=== PATIENT | male | born 1975 ===

== ENCOUNTER 2019-05-24 15:43 | Inpatient (IN) | payer MEDICARE ==
[~2019-05-24] VITALS: Ht 170.2 cm; Wt 99.6 kg
[2019-05-24] MEDS ORDERED: LORazepam 2 MG/ML VIAL IM ONE (16:30)
[2019-05-24] MEDS ORDERED: DiphenhydrAMINE HCL 50 MG/ML VIAL IM ONE (16:30)
[2019-05-24] MEDS ORDERED: HALOPERIDOL LACTATE 5 MG/ML VIAL IM ONE (16:30)
[2019-05-24 17:34] LABS: BASOPHILS % (AUTO) 0.3 % (0.0-2.0); EOSINOPHILS % (AUTO) 0 % (1.0-6.0); HEMATOCRIT 40.9 % (41-53); HEMOGLOBIN 13.8 g/dL (13.5-17.5); LYMPHOCYTES # (AUTO) 0.6 K/uL (1.0-4.8); LYMPHOCYTES % (AUTO) 7.9 % (22.0-44.0); MEAN CORPUSCULAR HEMOGLOBIN 31.2 pg (26.0-34.0); MEAN CORPUSCULAR HGB CONC 33.7 G/dL (31.0-37.0); MEAN CORPUSCULAR VOLUME 93 fL (80-100); MONOCYTES # (AUTO) 0.4 K/uL (0.1-1.0); MONOCYTES % (AUTO) 5.7 % (2.0-9.0); NEUTROPHILS # (AUTO) 6.2 K/uL (1.8-7.7); PLATELET COUNT (AUTO) 155 K/uL (150-450); RED BLOOD CELL COUNT(AUTO) 4.42 MIL/uL (4.50-5.90); RED CELL DISTRIBUTION WIDTH 13.6 % (11.5-14.5)
[2019-05-24 17:36] LABS: NEUTROPHILS % (AUTO) 86.1 % (40.0-70.0)
[2019-05-24] MEDS ORDERED: MAGNESIUM HYDROXIDE SUSPENSION 30 ML UDCUP PO PRN (17:45)
[2019-05-24] MEDS ORDERED: GuaiFENesin/D-METHORPHAN [SUGAR-FREE] 200-20MG/10 ML SYRUP UDCUP PO PRN (17:45)
[2019-05-24] MEDS ORDERED: ACETAMINOPHEN 325 MG TABLET PO PRN (17:45)
[2019-05-24] MEDS ORDERED: PROMETHAZINE HCL 25 MG TABLET PO PRN (17:45)
[2019-05-24] MEDS ORDERED: HydrOXYzine PAMOATE 50 MG CAPSULE PO PRN (17:45)
[2019-05-24] MEDS ORDERED: LOPERAMIDE HCL 2 MG CAPSULE PO PRN (17:45)
[2019-05-24] MEDS ORDERED: MAG HYDROX/AL HYDROX/SIMETH ES 30 ML SUSPENSION UDCUP PO PRN (17:45)
[2019-05-24] MEDS ORDERED: TUBERCULIN, PURIFIED PROTEIN DERIVATIVE 5 TU/0.1 ML SYRINGE ID ONE (17:45)
[2019-05-24 17:48] LABS: ANION GAP 11 mmol/L (8-16); CALCIUM, TOTAL 8.3 mg/dL (8.8-10.5); CARBON DIOXIDE 25 mmol/L (22-29); CHLORIDE 103 mmol/L (98-107); CREATININE 1.19 mg/dL (0.60-1.30); GLOMERULAR FILTR. RATE CALC > 60 mL/min (>60); GLUCOSE,RANDOM 123 mg/dL (70-110); POTASSIUM 3.4 mmol/L (3.5-5.1); SODIUM SERUM 139 mmol/L (136-145); UREA NITROGEN, BLOOD 23 mg/dL (7-18)
[2019-05-24 17:54] LABS: ALANINE AMINOTRANSFERASE 23 U/L (12-78); ALBUMIN 3.8 g/dL (3.4-5.0); ALKALINE PHOSPHATASE 88 U/L (46-116); ASPARTATE AMINOTRANSFERASE 23 U/L (15-37); BILIRUBIN,TOTAL 0.8 mg/dL (0.1-1.0); TOTAL PROTEIN, SERUM 7.1 g/dL (6.4-8.2)
[2019-05-24 18:46] LABS: HCG,QUANTITATIVE < 1 mIU/mL (0-6)
[2019-05-25] MEDS: THIAMINE HCL 100 MG TABLET PO SCH ×3 (00:16→16:03)
[2019-05-25] MEDS: OLANZapine 5 MG RAPDIS TABLET PO SCH ×2 (00:18→20:39)
[2019-05-25 00:43] LABS: APPEARANCE,URINE CLEAR (CLEAR); BILIRUBIN,URINE PRELIM. POSITIVE (NEGATIVE); GLUCOSE, URINE (UA) NEGATIVE (NEGATIVE); KETONES,URINE 15 mg/dL (NEGATIVE); LEUKOCYTE ESTERASE ,URINE NEGATIVE (NEGATIVE); NITRATE,URINE NEGATIVE (NEGATIVE); OCCULT BLOOD,URINE NEGATIVE (NEGATIVE); PROTEIN,URINE NEGATIVE (NEGATIVE)
[2019-05-25 00:46] LABS: AMPHET/METH SCREEN,URINE NEGATIVE (NEGATIVE); BARBITURATE SCREEN, URINE NEGATIVE (NEGATIVE); BENZODIAZEPINES SCREEN,URINE NEGATIVE (NEGATIVE); CANNABINOID SCREEN,URINE NEGATIVE (NEGATIVE); COCAINE SCREEN,URINE NEGATIVE (NEGATIVE); METHADONE SCREEN, URINE NEGATIVE (NEGATIVE); OPIATE SCREEN,URINE NEGATIVE (NEGATIVE)
[2019-05-25 00:48] LABS: BACTERIA,URINE None Seen /HPF (None Seen); RBC,URINE 0-2 /HPF (0-2); SQUAMOUS EPITHELIAL CELL,UR None Seen /LPF (None Seen); WBC,URINE 0-2 /HPF (0-5)
[2019-05-25 00:49] LABS: PHENCYCLIDINE SCREEN,URINE NEGATIVE (NEGATIVE)
[2019-05-25 02:07] VITALS: BP 126/80
[2019-05-25] MEDS ORDERED: INFLUENZA VIRUS VACCINE QVS 2019-20 (3YR+)/PF 60 MCG/0.5 ML SYRINGE IM ONE (02:30)
[2019-05-25 07:05] LABS: BASOPHILS % (AUTO) 0.4 % (0.0-2.0); EOSINOPHILS % (AUTO) 1.1 % (1.0-6.0); HEMATOCRIT 41.5 % (41-53); HEMOGLOBIN 13.9 g/dL (13.5-17.5); LYMPHOCYTES # (AUTO) 1.7 K/uL (1.0-4.8); LYMPHOCYTES % (AUTO) 28.7 % (22.0-44.0); MEAN CORPUSCULAR HEMOGLOBIN 31.1 pg (26.0-34.0); MEAN CORPUSCULAR HGB CONC 33.7 G/dL (31.0-37.0); MEAN CORPUSCULAR VOLUME 92 fL (80-100); MONOCYTES # (AUTO) 0.5 K/uL (0.1-1.0); MONOCYTES % (AUTO) 8.5 % (2.0-9.0); NEUTROPHILS # (AUTO) 3.7 K/uL (1.8-7.7); NEUTROPHILS % (AUTO) 61.3 % (40.0-70.0); PLATELET COUNT (AUTO) 140 K/uL (150-450); RED BLOOD CELL COUNT(AUTO) 4.49 MIL/uL (4.50-5.90); RED CELL DISTRIBUTION WIDTH 13.5 % (11.5-14.5)
[2019-05-25 07:24] LABS: HEMOGLOBIN A1C 5.2 % (4.5-6.2)
[2019-05-25 07:36] LABS: ALANINE AMINOTRANSFERASE 23 U/L (12-78); ALBUMIN 3.4 g/dL (3.4-5.0); ALKALINE PHOSPHATASE 80 U/L (46-116); ANION GAP 8 mmol/L (8-16); ASPARTATE AMINOTRANSFERASE 23 U/L (15-37); CALCIUM, TOTAL 8.2 mg/dL (8.8-10.5); CARBON DIOXIDE 28 mmol/L (22-29); CHLORIDE 105 mmol/L (98-107); CHOL/HDL RATIO 3.5 (4.2-7.3); CHOLESTEROL 141 mg/dL (131-200); CREATININE 0.97 mg/dL (0.60-1.30); GLOMERULAR FILTR. RATE CALC > 60 mL/min (>60); GLUCOSE,RANDOM 85 mg/dL (70-110); HDL CHOLESTEROL 40 mg/dL (40-60); LDL CHOL (CALC.) 93 mg/dL (0-130); POTASSIUM 3.9 mmol/L (3.5-5.1); SODIUM SERUM 141 mmol/L (136-145); THYROID STIMULATING HORMONE 1.21 uIU/mL (0.36-3.74); TOTAL PROTEIN, SERUM 6.8 g/dL (6.4-8.2); TRIGLYCERIDES 42 mg/dL (15-150); UREA NITROGEN, BLOOD 20 mg/dL (7-18)
[2019-05-25 08:05] VITALS: BP 117/69
[2019-05-25] MEDS: MULTIVITAMINS WITH MINERALS, THERAPEUTIC TABLET PO SCH (08:39)
[2019-05-25] MEDS: FOLIC ACID 1 MG TABLET PO SCH (08:39)
[2019-05-25] MEDS: LORazepam 2 MG TABLET PO PRN ×2 (10:16→16:49)
[2019-05-25 16:00] VITALS: BP 121/76
[2019-05-25] MEDS: OLANZapine 5 MG RAPDIS TABLET PO PRN (16:50)
[2019-05-26 04:18] VITALS: BP 109/87
[2019-05-26] MEDS: NALTREXONE HCL 50 MG TABLET PO SCH (07:54)
[2019-05-26] MEDS: MULTIVITAMINS WITH MINERALS, THERAPEUTIC TABLET PO SCH (07:54)
[2019-05-26] MEDS: THIAMINE HCL 100 MG TABLET PO SCH ×2 (07:54→16:29)
[2019-05-26] MEDS: FOLIC ACID 1 MG TABLET PO SCH (07:54)
[2019-05-26 08:30] VITALS: BP 118/73
[2019-05-26] MEDS: LORazepam 2 MG TABLET PO PRN ×2 (09:58→15:52)
[2019-05-26] MEDS: OLANZapine 5 MG RAPDIS TABLET PO PRN (15:51)
[2019-05-26 17:07] VITALS: BP 118/61
[2019-05-26] MEDS ORDERED: OLANZapine 10 MG RAPDIS TABLET PO SCH (21:00)
[2019-05-27 05:00] VITALS: BP 124/78
[2019-05-27] MEDS: MULTIVITAMINS WITH MINERALS, THERAPEUTIC TABLET PO SCH (08:39)
[2019-05-27] MEDS: OLANZapine 5 MG RAPDIS TABLET PO PRN (08:39)
[2019-05-27] MEDS: LORazepam 2 MG TABLET PO PRN (08:39)
[2019-05-27] MEDS: NALTREXONE HCL 50 MG TABLET PO SCH (08:40)
[2019-05-27] MEDS: THIAMINE HCL 100 MG TABLET PO SCH ×2 (08:40→16:35)
[2019-05-27] MEDS: FOLIC ACID 1 MG TABLET PO SCH (08:40)
[2019-05-27 10:06] VITALS: BP 143/77
[2019-05-27 19:04] VITALS: BP 123/80
[2019-05-27] MEDS: OLANZapine 5 MG RAPDIS TABLET PO SCH (20:13)
[2019-05-28] MEDS: FOLIC ACID 1 MG TABLET PO SCH (08:13)
[2019-05-28] MEDS: THIAMINE HCL 100 MG TABLET PO SCH ×2 (08:13→16:03)
[2019-05-28] MEDS: MULTIVITAMINS WITH MINERALS, THERAPEUTIC TABLET PO SCH (08:14)
[2019-05-28] MEDS: NALTREXONE HCL 50 MG TABLET PO SCH (08:14)
[2019-05-28 10:02] VITALS: BP 120/76
[2019-05-28 16:00] VITALS: BP 126/79
[2019-05-28] MEDS: DIVALPROEX SODIUM 500 MG ER TABLET PO SCH (20:12)
[2019-05-28] MEDS: OLANZapine 5 MG RAPDIS TABLET PO SCH (20:13)
[2019-05-29 04:38] VITALS: BP 117/75
[2019-05-29] MEDS: THIAMINE HCL 100 MG TABLET PO SCH ×2 (08:15→16:40)
[2019-05-29] MEDS: NALTREXONE HCL 50 MG TABLET PO SCH (08:15)
[2019-05-29] MEDS: FOLIC ACID 1 MG TABLET PO SCH (08:15)
[2019-05-29] MEDS: MULTIVITAMINS WITH MINERALS, THERAPEUTIC TABLET PO SCH (08:15)
[2019-05-29] MEDS: LORazepam 2 MG TABLET PO PRN (08:18)
[2019-05-29 09:33] VITALS: BP 118/69
[2019-05-29] MEDS: DIVALPROEX SODIUM 500 MG ER TABLET PO SCH (20:01)
[2019-05-29] MEDS: OLANZapine 5 MG RAPDIS TABLET PO SCH (20:01)
[2019-05-29 22:18] VITALS: BP 115/66
[2019-05-30] MEDS: NALTREXONE HCL 50 MG TABLET PO SCH (08:06)
[2019-05-30] MEDS: MULTIVITAMINS WITH MINERALS, THERAPEUTIC TABLET PO SCH (08:06)
[2019-05-30] MEDS: FOLIC ACID 1 MG TABLET PO SCH (08:06)
[2019-05-30] MEDS: LORazepam 2 MG TABLET PO PRN (08:07)
[2019-05-30] MEDS: THIAMINE HCL 100 MG TABLET PO SCH ×2 (08:07→16:09)
[2019-05-30 08:42] VITALS: BP 114/84
[2019-05-30 19:06] VITALS: BP 113/83
[2019-05-30] MEDS: DIVALPROEX SODIUM 500 MG ER TABLET PO SCH (20:45)
[2019-05-30] MEDS: OLANZapine 5 MG RAPDIS TABLET PO SCH (20:45)
[2019-05-31 01:16] VITALS: BP 125/98
[2019-05-31] MEDS: ZOLPIDEM TARTRATE 10 MG TABLET PO PRN (02:38)
[2019-05-31] MEDS: LORazepam 2 MG TABLET PO PRN ×2 (06:30→07:51)
[2019-05-31] MEDS: OLANZapine 5 MG RAPDIS TABLET PO PRN ×2 (06:30→13:47)
[2019-05-31] MEDS: MULTIVITAMINS WITH MINERALS, THERAPEUTIC TABLET PO SCH (07:50)
[2019-05-31] MEDS: FOLIC ACID 1 MG TABLET PO SCH (07:50)
[2019-05-31] MEDS: NALTREXONE HCL 50 MG TABLET PO SCH (07:50)
[2019-05-31] MEDS: THIAMINE HCL 100 MG TABLET PO SCH ×2 (07:50→16:11)
[2019-05-31 08:46] VITALS: BP 118/88
[2019-05-31 17:00] VITALS: BP 122/70
[2019-05-31] MEDS: DIVALPROEX SODIUM 500 MG ER TABLET PO SCH (20:50)
[2019-05-31] MEDS: OLANZapine 5 MG RAPDIS TABLET PO SCH (20:51)
[2019-06-01] MEDS: ZOLPIDEM TARTRATE 10 MG TABLET PO PRN (01:25)
[2019-06-01 05:54] VITALS: BP 124/78
[2019-06-01 08:00] VITALS: BP 119/78
[2019-06-01] MEDS: MULTIVITAMINS WITH MINERALS, THERAPEUTIC TABLET PO SCH (08:06)
[2019-06-01] MEDS: THIAMINE HCL 100 MG TABLET PO SCH ×2 (08:06→16:38)
[2019-06-01] MEDS: NALTREXONE HCL 50 MG TABLET PO SCH (08:06)
[2019-06-01] MEDS: FOLIC ACID 1 MG TABLET PO SCH (08:06)
[2019-06-01] MEDS: LORazepam 2 MG TABLET PO PRN (14:26)
[2019-06-01 16:00] VITALS: BP 116/76
[2019-06-01] MEDS: OLANZapine 10 MG RAPDIS TABLET PO SCH (21:07)
[2019-06-01] MEDS: DIVALPROEX SODIUM 500 MG ER TABLET PO SCH (21:08)
[2019-06-02 03:28] VITALS: BP 109/73
[2019-06-02 08:38] VITALS: BP 104/62
[2019-06-02] MEDS: FOLIC ACID 1 MG TABLET PO SCH (08:44)
[2019-06-02] MEDS: THIAMINE HCL 100 MG TABLET PO SCH ×2 (08:45→18:46)
[2019-06-02] MEDS: NALTREXONE HCL 50 MG TABLET PO SCH (08:45)
[2019-06-02] MEDS: MULTIVITAMINS WITH MINERALS, THERAPEUTIC TABLET PO SCH (08:46)
[2019-06-02] MEDS: OLANZapine 5 MG RAPDIS TABLET PO PRN (15:46)
[2019-06-02] MEDS: LORazepam 2 MG TABLET PO PRN (15:46)
[2019-06-02 16:40] VITALS: BP 102/62
[2019-06-02] MEDS: DIVALPROEX SODIUM 500 MG ER TABLET PO SCH (20:27)
[2019-06-02] MEDS: OLANZapine 10 MG RAPDIS TABLET PO SCH (20:27)
[2019-06-03 01:38] VITALS: BP 123/77
[2019-06-03] MEDS: NALTREXONE HCL 50 MG TABLET PO SCH (07:50)
[2019-06-03] MEDS: THIAMINE HCL 100 MG TABLET PO SCH (07:50)
[2019-06-03] MEDS: MULTIVITAMINS WITH MINERALS, THERAPEUTIC TABLET PO SCH (07:50)
[2019-06-03] MEDS: FOLIC ACID 1 MG TABLET PO SCH (07:50)
[2019-06-03 08:42] VITALS: BP 106/72
[2019-06-03] MEDS: LORazepam 2 MG TABLET PO PRN (14:09)
[2019-06-03 17:43] VITALS: BP 112/80
[2019-06-03] MEDS: DIVALPROEX SODIUM 500 MG ER TABLET PO SCH (20:23)
[2019-06-03] MEDS: OLANZapine 10 MG RAPDIS TABLET PO SCH (20:23)
[2019-06-04 01:53] VITALS: BP 117/90
[2019-06-04] MEDS: NALTREXONE HCL 50 MG TABLET PO SCH (08:16)
[2019-06-04] MEDS: MULTIVITAMINS WITH MINERALS, THERAPEUTIC TABLET PO SCH (08:16)
[2019-06-04] MEDS: LORazepam 2 MG TABLET PO PRN (08:23)
[2019-06-04 09:12] VITALS: BP 117/82
[2019-06-04 17:00] VITALS: BP 110/86
[2019-06-04] MEDS ORDERED: BISACODYL 5 MG EC TABLET PO PRN (19:00)
[2019-06-04] MEDS: DIVALPROEX SODIUM 500 MG ER TABLET PO SCH (20:45)
[2019-06-04] MEDS: OLANZapine 10 MG RAPDIS TABLET PO SCH (20:45)
[2019-06-05 05:38] VITALS: BP 112/78
[2019-06-05] MEDS: MULTIVITAMINS WITH MINERALS, THERAPEUTIC TABLET PO SCH (08:33)
[2019-06-05] MEDS: NALTREXONE HCL 50 MG TABLET PO SCH (08:33)
[2019-06-05 08:49] VITALS: BP 104/67
[2019-06-05] MEDS: OLANZapine 5 MG RAPDIS TABLET PO PRN (16:21)
[2019-06-05 18:35] VITALS: BP 112/97
[2019-06-05] MEDS: DIVALPROEX SODIUM 500 MG ER TABLET PO SCH (20:14)
[2019-06-05] MEDS: OLANZapine 10 MG RAPDIS TABLET PO SCH (20:14)
[2019-06-06] MEDS: MULTIVITAMINS WITH MINERALS, THERAPEUTIC TABLET PO SCH (08:50)
[2019-06-06] MEDS: NALTREXONE HCL 50 MG TABLET PO SCH (08:51)
[2019-06-06 08:55] VITALS: BP 138/84
[2019-06-06] MEDS: LORazepam 2 MG TABLET PO PRN (16:34)
[2019-06-06 18:08] VITALS: BP 146/90
[2019-06-06] MEDS: DIVALPROEX SODIUM 500 MG ER TABLET PO SCH (20:32)
[2019-06-06] MEDS: OLANZapine 10 MG RAPDIS TABLET PO SCH (20:32)
[2019-06-07 06:14] VITALS: BP 131/84
[2019-06-07 07:48] LABS: BASOPHILS % (AUTO) 0.4 % (0.0-2.0); EOSINOPHILS % (AUTO) 2.2 % (1.0-6.0); HEMATOCRIT 43.7 % (41-53); HEMOGLOBIN 15.1 g/dL (13.5-17.5); LYMPHOCYTES % (AUTO) 35.9 % (22.0-44.0); MEAN CORPUSCULAR HEMOGLOBIN 31.7 pg (26.0-34.0); MEAN CORPUSCULAR HGB CONC 34.5 G/dL (31.0-37.0); MEAN CORPUSCULAR VOLUME 92 fL (80-100); MONOCYTES # (AUTO) 0.4 K/uL (0.1-1.0); NEUTROPHILS % (AUTO) 54.5 % (40.0-70.0); PLATELET COUNT (AUTO) 126 K/uL (150-450); RED BLOOD CELL COUNT(AUTO) 4.76 MIL/uL (4.50-5.90); RED CELL DISTRIBUTION WIDTH 13.4 % (11.5-14.5)
[2019-06-07 08:24] LABS: ALANINE AMINOTRANSFERASE 34 U/L (12-78); ALBUMIN 3.4 g/dL (3.4-5.0); ALKALINE PHOSPHATASE 74 U/L (46-116); ANION GAP 5 mmol/L (8-16); ASPARTATE AMINOTRANSFERASE 32 U/L (15-37); BILIRUBIN,TOTAL 0.3 mg/dL (0.1-1.0); CALCIUM, TOTAL 8.6 mg/dL (8.8-10.5); CARBON DIOXIDE 30 mmol/L (22-29); CHLORIDE 106 mmol/L (98-107); CREATINE KINASE, TOTAL ONLY 232 U/L (39-308); CREATININE 1.03 mg/dL (0.60-1.30); GLOMERULAR FILTR. RATE CALC > 60 mL/min (>60); GLUCOSE,RANDOM 109 mg/dL (70-110); POTASSIUM 4.4 mmol/L (3.5-5.1); SODIUM SERUM 141 mmol/L (136-145); TOTAL PROTEIN, SERUM 7.2 g/dL (6.4-8.2); UREA NITROGEN, BLOOD 22 mg/dL (7-18)
[2019-06-07] MEDS: NALTREXONE HCL 50 MG TABLET PO SCH (08:34)
[2019-06-07] MEDS: MULTIVITAMINS WITH MINERALS, THERAPEUTIC TABLET PO SCH (08:34)
[2019-06-07 10:38] VITALS: BP 106/70
[2019-06-07 16:36] VITALS: BP 120/73
[2019-06-07] MEDS: DIVALPROEX SODIUM 250 MG ER TABLET PO SCH (20:54)
[2019-06-07] MEDS: OLANZapine 10 MG RAPDIS TABLET PO SCH (20:54)
[2019-06-08 07:26] LABS: BASOPHILS % (AUTO) 0.4 % (0.0-2.0); HEMATOCRIT 42.3 % (41-53); HEMOGLOBIN 14.5 g/dL (13.5-17.5); LYMPHOCYTES # (AUTO) 2.1 K/uL (1.0-4.8); LYMPHOCYTES % (AUTO) 36.1 % (22.0-44.0); MEAN CORPUSCULAR HEMOGLOBIN 31.4 pg (26.0-34.0); MEAN CORPUSCULAR HGB CONC 34.2 G/dL (31.0-37.0); MEAN CORPUSCULAR VOLUME 92 fL (80-100); MONOCYTES # (AUTO) 0.4 K/uL (0.1-1.0); MONOCYTES % (AUTO) 6.9 % (2.0-9.0); NEUTROPHILS # (AUTO) 3.2 K/uL (1.8-7.7); NEUTROPHILS % (AUTO) 54.6 % (40.0-70.0); PLATELET COUNT (AUTO) 122 K/uL (150-450); RED BLOOD CELL COUNT(AUTO) 4.61 MIL/uL (4.50-5.90); RED CELL DISTRIBUTION WIDTH 13.6 % (11.5-14.5)
[2019-06-08] MEDS: MULTIVITAMINS WITH MINERALS, THERAPEUTIC TABLET PO SCH (08:34)
[2019-06-08] MEDS: NALTREXONE HCL 50 MG TABLET PO SCH (08:34)
[2019-06-08 09:46] VITALS: BP 118/77
[2019-06-08] MEDS: DIVALPROEX SODIUM 250 MG ER TABLET PO SCH (20:19)
[2019-06-08] MEDS: OLANZapine 10 MG RAPDIS TABLET PO SCH (20:19)
[2019-06-08 21:51] VITALS: BP 114/82
[2019-06-09 07:19] LABS: BASOPHILS % (AUTO) 0.4 % (0.0-2.0); EOSINOPHILS % (AUTO) 1.8 % (1.0-6.0); HEMATOCRIT 43.4 % (41-53); HEMOGLOBIN 14.5 g/dL (13.5-17.5); LYMPHOCYTES # (AUTO) 1.8 K/uL (1.0-4.8); LYMPHOCYTES % (AUTO) 30.9 % (22.0-44.0); MEAN CORPUSCULAR HEMOGLOBIN 30.8 pg (26.0-34.0); MEAN CORPUSCULAR HGB CONC 33.4 G/dL (31.0-37.0); MEAN CORPUSCULAR VOLUME 92 fL (80-100); MONOCYTES # (AUTO) 0.4 K/uL (0.1-1.0); MONOCYTES % (AUTO) 6.9 % (2.0-9.0); NEUTROPHILS # (AUTO) 3.4 K/uL (1.8-7.7); PLATELET COUNT (AUTO) 121 K/uL (150-450); RED CELL DISTRIBUTION WIDTH 13.7 % (11.5-14.5)
[2019-06-09 07:21] LABS: ALANINE AMINOTRANSFERASE 36 U/L (12-78); ALBUMIN 3.3 g/dL (3.4-5.0); ALKALINE PHOSPHATASE 69 U/L (46-116); ANION GAP 8 mmol/L (8-16); ASPARTATE AMINOTRANSFERASE 30 U/L (15-37); BILIRUBIN,TOTAL 0.3 mg/dL (0.1-1.0); CALCIUM, TOTAL 8.3 mg/dL (8.8-10.5); CARBON DIOXIDE 27 mmol/L (22-29); CHLORIDE 105 mmol/L (98-107); CREATININE 0.98 mg/dL (0.60-1.30); GLOMERULAR FILTR. RATE CALC > 60 mL/min (>60); GLUCOSE,RANDOM 115 mg/dL (70-110); POTASSIUM 4.1 mmol/L (3.5-5.1); SODIUM SERUM 140 mmol/L (136-145); TOTAL PROTEIN, SERUM 7.1 g/dL (6.4-8.2); UREA NITROGEN, BLOOD 19 mg/dL (7-18); VALPROIC ACID 80 mcg/mL (50-100)
[2019-06-09] MEDS: OLANZapine 5 MG RAPDIS TABLET PO PRN (08:30)
[2019-06-09] MEDS: MULTIVITAMINS WITH MINERALS, THERAPEUTIC TABLET PO SCH (08:30)
[2019-06-09] MEDS: NALTREXONE HCL 50 MG TABLET PO SCH (08:30)
[2019-06-09 08:40] VITALS: BP 136/70
[2019-06-09] MEDS: OLANZapine 10 MG RAPDIS TABLET PO SCH (20:18)
[2019-06-09] MEDS: DIVALPROEX SODIUM 250 MG ER TABLET PO SCH (20:19)
[2019-06-09 21:27] VITALS: BP 125/86
[2019-06-10 03:59] VITALS: BP 116/68
[2019-06-10] MEDS: MULTIVITAMINS WITH MINERALS, THERAPEUTIC TABLET PO SCH (08:06)
[2019-06-10] MEDS: NALTREXONE HCL 50 MG TABLET PO SCH (08:06)
[2019-06-10 08:43] VITALS: BP 123/78
[2019-06-10 19:51] VITALS: BP 145/77
[2019-06-10] MEDS: OLANZapine 10 MG RAPDIS TABLET PO SCH (20:43)
[2019-06-10] MEDS: DIVALPROEX SODIUM 250 MG ER TABLET PO SCH (20:44)
[2019-06-11] MEDS: MULTIVITAMINS WITH MINERALS, THERAPEUTIC TABLET PO SCH (07:58)
[2019-06-11] MEDS: NALTREXONE HCL 50 MG TABLET PO SCH (07:58)
[2019-06-11] MEDS: OLANZapine 5 MG RAPDIS TABLET PO PRN (07:58)
[2019-06-11 11:09] VITALS: BP 141/96
[2019-06-11 20:06] VITALS: BP 119/76
[2019-06-11] MEDS: DIVALPROEX SODIUM 250 MG ER TABLET PO SCH (20:14)
[2019-06-11] MEDS: OLANZapine 10 MG RAPDIS TABLET PO SCH (20:14)
[2019-06-12 08:30] VITALS: BP 108/75
[2019-06-12] MEDS: MULTIVITAMINS WITH MINERALS, THERAPEUTIC TABLET PO SCH (08:51)
[2019-06-12] MEDS: LORazepam 2 MG TABLET PO PRN (08:51)
[2019-06-12] MEDS: NALTREXONE HCL 50 MG TABLET PO SCH (08:53)
[2019-06-12 19:12] VITALS: BP 149/76
[2019-06-12] MEDS: DIVALPROEX SODIUM 250 MG ER TABLET PO SCH (20:53)
[2019-06-12] MEDS: OLANZapine 10 MG RAPDIS TABLET PO SCH (20:54)
[2019-06-13 04:38] VITALS: BP 126/74
[2019-06-13 08:30] VITALS: BP 110/70
[2019-06-13] MEDS: MULTIVITAMINS WITH MINERALS, THERAPEUTIC TABLET PO SCH (08:54)
[2019-06-13] MEDS: NALTREXONE HCL 50 MG TABLET PO SCH (08:55)
[2019-06-13 16:00] VITALS: BP 119/79
[2019-06-13] MEDS: DIVALPROEX SODIUM 250 MG ER TABLET PO SCH (21:10)
[2019-06-13] MEDS: OLANZapine 10 MG RAPDIS TABLET PO SCH (21:10)
[2019-06-14 05:48] VITALS: BP 118/85
[2019-06-14] MEDS: NALTREXONE HCL 50 MG TABLET PO SCH (08:06)
[2019-06-14] MEDS: MULTIVITAMINS WITH MINERALS, THERAPEUTIC TABLET PO SCH (08:07)
[2019-06-14 16:00] VITALS: BP 147/87
[2019-06-14] MEDS: DIVALPROEX SODIUM 250 MG ER TABLET PO SCH (20:47)
[2019-06-14] MEDS: OLANZapine 10 MG RAPDIS TABLET PO SCH (20:47)
[2019-06-15] MEDS: MULTIVITAMINS WITH MINERALS, THERAPEUTIC TABLET PO SCH (08:15)
[2019-06-15] MEDS: NALTREXONE HCL 50 MG TABLET PO SCH (08:16)
[2019-06-15 09:00] VITALS: BP 123/74
[2019-06-15] MEDS: OLANZapine 5 MG RAPDIS TABLET PO PRN (15:48)
[2019-06-15 16:36] VITALS: BP 115/67
[2019-06-15] MEDS: OLANZapine 10 MG RAPDIS TABLET PO SCH (20:25)
[2019-06-15] MEDS: DIVALPROEX SODIUM 250 MG ER TABLET PO SCH (20:25)
[2019-06-16] MEDS: NALTREXONE HCL 50 MG TABLET PO SCH (08:48)
[2019-06-16] MEDS: MULTIVITAMINS WITH MINERALS, THERAPEUTIC TABLET PO SCH (08:48)
[2019-06-16] MEDS: OLANZapine 5 MG RAPDIS TABLET PO PRN (08:49)
[2019-06-16 10:14] VITALS: BP 112/77
[2019-06-16 18:31] VITALS: BP 115/72
[2019-06-16] MEDS: DIVALPROEX SODIUM 250 MG ER TABLET PO SCH (20:12)
[2019-06-16] MEDS: OLANZapine 10 MG RAPDIS TABLET PO SCH (20:12)
[2019-06-17 09:18] VITALS: BP 119/72
[2019-06-17] MEDS: NALTREXONE HCL 50 MG TABLET PO SCH (10:11)
[2019-06-17] MEDS: MULTIVITAMINS WITH MINERALS, THERAPEUTIC TABLET PO SCH (10:12)
[2019-06-17 19:00] VITALS: BP 122/70
[2019-06-17] MEDS: DIVALPROEX SODIUM 250 MG ER TABLET PO SCH (20:15)
[2019-06-17] MEDS: OLANZapine 10 MG RAPDIS TABLET PO SCH (20:16)
[2019-06-18 10:13] VITALS: BP 106/74
[2019-06-18] MEDS: MULTIVITAMINS WITH MINERALS, THERAPEUTIC TABLET PO SCH (10:45)
[2019-06-18] MEDS: NALTREXONE HCL 50 MG TABLET PO SCH (10:46)
[2019-06-18] MEDS: DIVALPROEX SODIUM 250 MG ER TABLET PO SCH (20:22)
[2019-06-18] MEDS: OLANZapine 10 MG RAPDIS TABLET PO SCH (20:22)
[2019-06-18 20:55] VITALS: BP 117/78
[2019-06-19] MEDS: NALTREXONE HCL 50 MG TABLET PO SCH (08:26)
[2019-06-19] MEDS: OLANZapine 5 MG RAPDIS TABLET PO PRN (08:26)
[2019-06-19] MEDS: MULTIVITAMINS WITH MINERALS, THERAPEUTIC TABLET PO SCH (08:26)
[2019-06-19 08:47] VITALS: BP 137/77
[2019-06-19 19:46] VITALS: BP 137/77
[2019-06-19] MEDS: OLANZapine 10 MG RAPDIS TABLET PO SCH (20:29)
[2019-06-19] MEDS: DIVALPROEX SODIUM 250 MG ER TABLET PO SCH (20:29)
[2019-06-20] MEDS: MULTIVITAMINS WITH MINERALS, THERAPEUTIC TABLET PO SCH (08:31)
[2019-06-20] MEDS: NALTREXONE HCL 50 MG TABLET PO SCH (08:31)
[2019-06-20 09:00] VITALS: BP 112/83
[2019-06-20 19:50] VITALS: BP 104/72
[2019-06-20] MEDS: DIVALPROEX SODIUM 250 MG ER TABLET PO SCH (20:25)
[2019-06-20] MEDS: OLANZapine 10 MG RAPDIS TABLET PO SCH (20:25)
[2019-06-21 08:00] VITALS: BP 130/75
[2019-06-21] MEDS: NALTREXONE HCL 50 MG TABLET PO SCH (08:41)
[2019-06-21] MEDS: MULTIVITAMINS WITH MINERALS, THERAPEUTIC TABLET PO SCH (08:41)
[2019-06-21 17:43] VITALS: BP 103/76
[2019-06-21] MEDS: OLANZapine 10 MG RAPDIS TABLET PO SCH (20:28)
[2019-06-21] MEDS: DIVALPROEX SODIUM 250 MG ER TABLET PO SCH (20:28)
[2019-06-22 08:47] VITALS: BP 131/72
[2019-06-22] MEDS: NALTREXONE HCL 50 MG TABLET PO SCH (10:58)
[2019-06-22] MEDS: MULTIVITAMINS WITH MINERALS, THERAPEUTIC TABLET PO SCH (10:58)
[2019-06-22 17:43] VITALS: BP 116/57
[2019-06-22] MEDS: OLANZapine 10 MG RAPDIS TABLET PO SCH (20:46)
[2019-06-22] MEDS: DIVALPROEX SODIUM 250 MG ER TABLET PO SCH (20:46)
[2019-06-23] MEDS: MULTIVITAMINS WITH MINERALS, THERAPEUTIC TABLET PO SCH (08:36)
[2019-06-23] MEDS: NALTREXONE HCL 50 MG TABLET PO SCH (08:37)
[2019-06-23 09:22] VITALS: BP 123/78
[2019-06-23 17:20] VITALS: BP 137/69
[2019-06-23] MEDS: OLANZapine 10 MG RAPDIS TABLET PO SCH (20:34)
[2019-06-23] MEDS: DIVALPROEX SODIUM 250 MG ER TABLET PO SCH (20:34)
[2019-06-24 09:04] VITALS: BP 111/72
[2019-06-24] MEDS: MULTIVITAMINS WITH MINERALS, THERAPEUTIC TABLET PO SCH (09:07)
[2019-06-24] MEDS: NALTREXONE HCL 50 MG TABLET PO SCH (09:07)
[2019-06-24 16:00] VITALS: BP 116/70
[2019-06-24] MEDS ORDERED: OLAN10TA22 PO (16:44)
[2019-06-24] MEDS ORDERED: DIVA250T45 PO (16:44)
[2019-06-24] MEDS ORDERED: NALT50TA PO (16:44)
[2019-06-24] MEDS: DIVALPROEX SODIUM 250 MG ER TABLET PO SCH (20:13)
[2019-06-24] MEDS: OLANZapine 10 MG RAPDIS TABLET PO SCH (20:13)
[2019-06-25 08:00] VITALS: BP 127/94
[2019-06-25] MEDS: NALTREXONE HCL 50 MG TABLET PO SCH (08:50)
[2019-06-25] MEDS: MULTIVITAMINS WITH MINERALS, THERAPEUTIC TABLET PO SCH (08:53)
== END 2019-06-25 17:00 | disposition home or self-care (01) | DRG 885 ==
LOC: EMS 15:44 → 3EX 05-25 00:01
PROVIDERS: ADMIT Psychiatry & Neurology Psychiatry; ATTEND Psychiatry & Neurology Psychiatry
DX: F20.9 Schizophrenia, unspecified (principal); F17.210 Nicotine dependence, cigarettes, uncomplicated; E87.6 Hypokalemia; R03.0 Elevated blood-pressure reading, without diagnosis of hypertension; R79.89 Other specified abnormal findings of blood chemistry; F19.10 Other psychoactive substance abuse, uncomplicated; K59.00 Constipation, unspecified; D69.6 Thrombocytopenia, unspecified; G47.00 Insomnia, unspecified; F94.0 Selective mutism; F12.90 Cannabis use, unspecified, uncomplicated; E83.51 Hypocalcemia; E78.5 Hyperlipidemia, unspecified; Z91.19 Patient's noncompliance with other medical treatment and regimen; Z83.3 Family history of diabetes mellitus; Z72.89 Other problems related to lifestyle; Z79.899 Other long term (current) drug therapy
CPT/HCPCS: 83036; 83735; 84439; 84443; 86592; 87081; G0378; G0480; J1200; J1630; J2060